=== PATIENT | male | born 2000 | race Caucasian/White ===

== ENCOUNTER 2023-12-31 10:48 | Outpatient (AMB) | payer BC, SELFPAY ==
--- NOTE | 2023-12-31 11:00 | A.OFFPC_ITS ---
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 Pt [facility] the [facility] from [place] after three years without seeing or having an PCP. 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 Patient has a past medical history significant for anxiety, insomnia, Neurofibromatosis, severe learning disability. 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 Does use [place] maneuvers though have not been effective. Usually has to go to professional vestibular therapy. .. Anxiety: Was on fluoxitine 20mg which was very helpful for his anxiety. He would like to restart fluoxetine which has been helpful for his anxiety in the past. VAccine: Needs Tdap though declines at this time, [facility] Medical History FHx: chronic kidney disease Insomnia Neurofibromatosis Surgical History S/P laparoscopic appendectomy Family History (Updated 12/31/23 @ 11:30 by Shaji Altamirano PA-C) Mother Anxiety IgA nephropathy Melanoma Father Heart disease Elevated cholesterol Social History (Updated 12/31/23 @ 11:32 by Shaji Altamirano PA-C) Household Members: Family Housing: House Alcohol intake: current Alcohol intake frequency: a few times a month Alcohol type: beer Patient Tobacco Use Status: Never used Tobacco e-Cigarette/Vaping Use: Former Use Substance Use Type: Marijuana service: No Current occupational status: employed Current occupation: [employer] Cognitive needs: No Hearing needs: No Vision needs: No Questionnaire PHQ-9 Over the last 2 weeks, how often have you been bothered by any of the following problems? 1. Little interest or pleasure in doing things: not at all 2. Feeling down, depressed, or hopeless: not at all 3. Trouble falling or staying asleep, or sleeping too much: not at all 4. Feeling tired or having little energy: not at all 5. Poor appetite or overeating: not at all 6. Feeling bad about yourself - or that you are a failure or have let yourself or your family down: not at all 7. Trouble concentrating on things, such as reading the newspaper or watching television: not at all 8. Moving or speaking so slowly that other people could have noticed. Or the opposite - being so fidgety or restless that you have been moving around a lot more than usual: not at all 9. Thoughts that you would be better off or of hurting yourself in some way: not at all Total score: 0 Depression Screening Interpretation: Negative Depression Screening Done: Yes 32945 - PHQ-9 Billing: Yes Source: Developed by Drs. Logan Greenberg, Kae San, Simone Chappell and colleagues, with an educational reuben from [employer]. Thrive Questionnaire Date Thrive assessed: 12/31/23 I am a: Patient What is your living situation today?: I have a steady place to live Within the past 12 months, did the food you bought not last and you didn't have the money to get more?: Never true Within the past 12 months, did you worry whether your food would run out before you got money to buy more?: Never true Do you have trouble paying for medicines?: No Do you have trouble getting transportation to medical appointments?: No Do you have trouble paying your heating and electricity bill?: No Do you have trouble taking care of your child, family member or friend?: No Do you have trouble with day-to-day activities such as bathing, preparing meals, shopping, managing finances, etc.?: No Are you currently unemployed and looking for a job?: No Are you interested in more education?: No Please select the resources that you would like help with: None Currently or been in a relationship where the following occur: no concerns reported THRIVE Score: 0 AUDIT C Alcohol Use Questionnaire (AUDIT-C) 1. How often do you have a drink containing alcohol?: 2-3 times a week 2. How many drinks containing alcohol do you have on a typical day when you are drinking?: 1 or 2 3. How often do you have six or more drinks on one occasion?: Monthly Total Score: 5 RAIN-7 AMB Questionnaire RAIN-7 Date RAIN - 7 assessed: 12/31/23 Feeling nervous, anxious, or on edge: 3 = Nearly every day Not being able to stop or control worryin = Nearly every day Worrying too much about different things: 3 = Nearly every day Trouble relaxin = Nearly every day Being so restless that it is hard to sit still: 2 = More than half the days Becoming easily annoyed or irritable: 3 = Nearly every day Feeling afraid as if something awful might happen: 2 = More than half the days Total RAIN-7 score (0-4 normal; 5-9 mild; 10-14 moderate; 15-21 severe): 19 Source: Developed by Drs. Logan Greenberg, Kae San, Simone Chappell and colleagues, with an educational reuben from [employer]. RAIN-7 Assessment Billing RAIN-7 Assessment Tool: RAIN-7 Assessment 15634 Review of Systems Const Denies headache(s) Eyes Denies loss of vision ENT Denies vertigo, Denies dizziness, Denies headache(s) and Denies sore throat Card Denies chest pain, Denies leg edema and Denies lightheadedness Resp Denies cough, Denies hemoptysis and Denies wheezing GI Denies abdominal pain, Denies melena, Denies constipation, Denies diarrhea and Denies vomiting Denies dysuria, Denies urinary frequency and Denies urinary urgency Musc Denies arthralgias, Denies joint swelling, Denies numbness and Denies tingling Neuro Denies Abnormal speech present, Denies behavioral changes, Denies vertigo, Denies dizziness, Denies headache(s), Denies loss of vision, Denies memory loss, Denies numbness and Denies tingling Psych Denies anxiety, Denies behavioral changes, Denies depression, Denies memory loss and Denies panic attacks Gorge/Lymph Denies easy bleeding and Denies easy bruising Aller/Immun Denies wheezing Physical exam (Primary Care) Vital Signs: Last Vital Signs Pulse 94 12/31/23 11:07 BP 110/70 12/31/23 11:07 Pulse Ox 97 12/31/23 11:07 Oxygen Delivery Method Room Air 12/31/23 11:07 BMI result Body Mass Index 18.5 Tobacco/Smoking Status: Tobacco use Status Tobacco use date assessed 12/31/23 12/31/23 11:19 Patient Tobacco Use Status Never used Tobacco 12/31/23 11:32 e-Cigarette/Vaping Use Former Use 12/31/23 11:32 PHQ-9: PHQ-9 Score PHQ-9: Total score 0 12/31/23 11:33 Depression Screening Interpretation: Negative Thrive Assessment: Date of Thrive Assessment Date Thrive assessed 12/31/23 12/31/23 11:19 Currently or been in a relationship where the following occur: no concerns reported Const General: healthy appearing, no acute distress, alert and awake Nutritional Appearance: well nourished Orientation/consciousness: oriented to person, oriented to place and oriented to time HENMT Ears: TM's normal bilaterally General nose exam: Normal nasal mucous membranes and turbinates present Eyes Conjunctivae: conjunctivae normal Sclerae: sclerae normal Pupils: Equal, round and reactive pupils present Neck Neck: Yes no lymphadenopathy and Yes no JVD Thyroid: Thyroid normal Carotids: no bruits Resp Effort & Inspection: normal respiratory effort and not tachypneic Auscultation: no crackles, no rales, no rhonchi and no wheezes Cardio Rate: regular rate Rhythm: regular rhythm Heart sounds: no murmurs and normal S1 and S2 GI Palpation (GI): Soft to palpation, nontender, no hepatomegaly and no splenomegaly Auscultation: normal bowel sounds Skin General skin exam: no rashes or lesions noted and dry skin Neuro General: oriented to person, oriented to place and oriented to time Cranial nerves: Yes Equal, round and reactive pupils present Speech: No Abnormal speech present Gait exam (Neuro): Normal gait present Motor exam (neuro): no tremor noted Extrem Right upper extremity: full ROM Left upper extremity: full ROM Right lower extremity: full ROM; no edema Left lower extremity: full ROM; no edema Psych Mental Status: mental status grossly normal Speech and movement: Normal speech and movement present Affect: normal affect Attitude: cooperative Thought process: Normal thought process present Assessment and Plan Assessment & Plan (1) Anxiety: Comment: recommended counseling - pt declined referral Code(s): F41.9 - Anxiety disorder, unspecified Plan: As per rain 7 score patient does have a history of anxiety. He was on fluoxetine 20 mg in the past with good effect on reducing his anxiety. He has not interested in cognitive behavioral therapy at this time. (2) Neurofibromatosis: Comment: followed by [facility]. Code(s): Q85.00 - Neurofibromatosis, unspecified Plan: Has been stable. Does have intermittent episodes vertigo that are severe and disabling. (3) Screening for diabetes mellitus (DM): Code(s): Z13.1 - Encounter for screening for diabetes mellitus (4) BPPV (benign paroxysmal positional vertigo): Code(s): H81.10 - Benign paroxysmal vertigo, unspecified ear Qualifiers: Laterality: bilateral Qualified Code(s): H81.13 - Benign paroxysmal vertigo, bilateral Plan: As per HPI patient as episodic vertigo attacks to which he needs the help of for fresh no vestibular therapy. Will refer to [facility] in hopes he will be able to contact them on an as needed basis. Will also supply patient with meclizine to use on an as needed basis for dizziness. Orders: Orders Comprehensive [place]. Panel Fast Today Z13.1 - Encounter for screening for diabetes mellitus Complete Blood Count no Diff Today Q85.00 - Neurofibromatosis, unspecified PT Evaluation and Treatment Today H81.13 - Benign paroxysmal vertigo, bilateral Medications: New fluoxetine 20 mg PO DAILY 30 caps 3RF 30 days F41.9 - Anxiety disorder, unspecified meclizine 25 mg PO DAILY PRN 10 tabs 0RF motion sickness 10 days H81.13 - Benign paroxysmal vertigo, bilateral Coding Level of Care Code New Pt Level 4 (27957) Diagnoses Anxiety F41.9 Neurofibromatosis Q85.00 Screening for diabetes mellitus (DM) Z13.1 Benign paroxysmal positional vertigo due to bilateral vestibular disorder H81.13 Laterality: bilateral Additional Codes RAIN-7 Assessment Billing - RAIN-7 Assessment Tool: RAIN-7 Assessment 52066 ([id number])
[2023-12-31 11:07] VITALS: BP 110/70; PULSE 94; O2SAT 97; BMI 18.5
== END 2023-12-31 11:46 | disposition home or self-care (01) ==
PROVIDERS: PCP Physician Assistant; Visit Provider Physician Assistant
DX: Q85.00 Neurofibromatosis, unspecified (principal); F41.9 Anxiety disorder, unspecified; Z13.1 Encounter for screening for diabetes mellitus; H81.13 Benign paroxysmal vertigo, bilateral
CPT/HCPCS: 99204

== ENCOUNTER 2024-06-03 10:56 | Outpatient (AMB) | payer BC, SELFPAY ==
[2024-06-03 11:12] VITALS: BP 110/68; BMI 20.2
--- NOTE | 2024-06-03 11:12 | A.OFFPC_ITS ---
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 He reports 4 days ago playing basketball and falling on his left side injuring his ribs. He denies any issues with breathing though does have pretty significant pain over his left chest when he sneezes or coughs. He otherwise denies any difficulty with breathing. He has been using ice packs and Motrin without much relief. [facility] Medical History FHx: chronic kidney disease Insomnia Neurofibromatosis Surgical History S/P laparoscopic appendectomy Family History Mother Anxiety IgA nephropathy Melanoma Father Heart disease Elevated cholesterol Social History Household Members: Family Housing: House Alcohol intake: current Alcohol intake frequency: a few times a month Alcohol type: beer Patient Tobacco Use Status: Never used Tobacco e-Cigarette/Vaping Use: Former Use Substance Use Type: Marijuana service: No Current occupational status: employed Current occupation: [employer] Cognitive needs: No Hearing needs: No Vision needs: No Questionnaire Thrive Questionnaire Date Thrive assessed: 12/31/23 RAIN-7 AMB Questionnaire RAIN-7 Date RAIN - 7 assessed: 12/31/23 Source: Developed by Drs. Logan Greenberg, Kae San, Simone Chappell and colleagues, with an educational reuben from [employer]. Review of Systems Const Denies headache(s) Eyes Denies loss of vision ENT Denies vertigo, Denies dizziness, Denies headache(s) and Denies sore throat Card Denies chest pain, Denies leg edema and Denies lightheadedness Resp Denies cough, Denies hemoptysis and Denies wheezing GI Denies abdominal pain, Denies melena, Denies constipation, Denies diarrhea and Denies vomiting Denies dysuria, Denies urinary frequency and Denies urinary urgency Musc Denies arthralgias, Denies joint swelling, Denies numbness and Denies tingling Neuro Denies Abnormal speech present, Denies behavioral changes, Denies vertigo, Denies dizziness, Denies headache(s), Denies loss of vision, Denies memory loss, Denies numbness and Denies tingling Psych Denies anxiety, Denies behavioral changes, Denies depression, Denies memory loss and Denies panic attacks Gorge/Lymph Denies easy bleeding and Denies easy bruising Aller/Immun Denies wheezing Physical exam (Primary Care) Vital Signs: Last Vital Signs BP 110/68 06/03/24 11:12 BMI result Body Mass Index 20.2 Tobacco/Smoking Status: Tobacco use Status Tobacco use date assessed 12/31/23 06/03/24 11:15 Patient Tobacco Use Status Never used Tobacco 06/03/24 11:15 e-Cigarette/Vaping Use Former Use 06/03/24 11:15 Thrive Assessment: Date of Thrive Assessment Date Thrive assessed 12/31/23 06/03/24 11:15 Const General: healthy appearing, no acute distress, alert and awake Nutritional Appearance: well nourished Orientation/consciousness: oriented to person, oriented to place and oriented to time [facility] Ears: TM's normal bilaterally General nose exam: Normal nasal mucous membranes and turbinates present Eyes Conjunctivae: conjunctivae normal Sclerae: sclerae normal Pupils: Equal, round and reactive pupils present Neck Neck: Yes no lymphadenopathy and Yes no JVD Thyroid: Thyroid normal Carotids: no bruits Chest Chest/axillae images: 2 1. TENDERNESS TO PALPATION IN THE AREA OUTLINED. Resp Effort & Inspection: normal respiratory effort and not tachypneic Auscultation: no crackles, no rales, no rhonchi and no wheezes Cardio Rate: regular rate Rhythm: regular rhythm Heart sounds: no murmurs and normal S1 and S2 GI Palpation (GI): Soft to palpation, nontender, no hepatomegaly and no splenomegaly Auscultation: normal bowel sounds Skin General skin exam: no rashes or lesions noted and dry skin Neuro General: oriented to person, oriented to place and oriented to time Cranial nerves: Yes Equal, round and reactive pupils present Speech: No Abnormal speech present Gait exam (Neuro): Normal gait present Motor exam (neuro): no tremor noted Extrem Right upper extremity: full ROM Left upper extremity: full ROM Right lower extremity: full ROM; no edema Left lower extremity: full ROM; no edema Psych Mental Status: mental status grossly normal Speech and movement: Normal speech and movement present Affect: normal affect Attitude: cooperative Thought process: Normal thought process present Office Procedures Flu Questionnaire Does the patient have a severe egg allergy?: No Immunizations Fluarix Triv [id number] (PF) 45 mcg (15 mcg x 3)/0.5 mL IM syringe Performing Provider: Shaji Altamirano PA-C [facility] Documented (not given) by: PATRIZIA Khanna on 06/03/24 11:23 Reason Not Given: Patient Refused Coding Level of Care Code Est Pt Level 3 (49427) Diagnoses Rib pain on left side R07.81 Assessment & Plan Assessment & Plan (1) Rib pain on left side: Code(s): R07.81 - Pleurodynia Category: Medical Plan: Patient's seems to have a left-sided rib contusion. Will send for x-rays to rule out a fracture. Will supply patient with muscle relaxer and tramadol for his pain relief temporarily. Fortunately has no respiratory compromise. Advised on topical lidocaine NSAID and Tylenol as part of pain regime as well. Orders: Orders 2 XR ribs LT min 3V w CXR1V Today R07.81 - Pleurodynia Influenza [id number] Immunization Today Z23 - Encounter for immunization Medications: New 2 tramadol 50 mg PO DAILY 7 days 7 tabs 0RF R07.81 - Pleurodynia tizanidine 2 mg PO BEDTIME 15 days 15 tabs 0RF muscle spasticity R07.81 - Pleurodynia
== END 2024-06-03 12:08 | disposition home or self-care (01) ==
LOC: HO.HMCH 10:56
PROVIDERS: PCP Physician Assistant; Visit Provider Physician Assistant
DX: R07.81 Pleurodynia (principal); Z23 Encounter for immunization

== ENCOUNTER → 2024-06-03 10:56 | Outpatient (BNVA) | payer BC, SELFPAY | PROVIDERS: PCP Physician Assistant; Visit Provider Physician Assistant | DX: R07.81 Pleurodynia (principal); Z28.21 Immunization not carried out because of patient refusal | CPT/HCPCS: 90471 ==

== ENCOUNTER 2025-07-28 10:13 | Outpatient (AMB) | payer BC, SELFPAY ==
--- NOTE | 2025-07-28 10:19 | AM.OFFWIN_ITS ---
Intake Vital Signs 07/28/25 10:24 Height 5 ft 10 in Weight 124 lb BMI 17.8 BP 120/68 Blood Pressure Location Lt brachial Position Sitting Pulse 125 H Pulse Source Pulse Oximeter Temp 98.4 F Temp Source Oral Pulse Oximetry (%) 98 Oxygen Delivery Method Room Air Intake Visit Reasons: EP-sore throat [phone] Intake Note: Patient presents c/o sore throat, nasal congestion x3 days. Patient Tobacco Use Status: Never used Tobacco Allergies methylphenidate (Concerta) Allergy (Unknown, Verified 07/28/25 10:23) unknown HPI EP-sore throat [phone] HPI Details This is a 25 year old male patient who presents to the [place] clinic with report of 3 day history of sore throat and body aches. Denies any fevers, chills, respiratory or GI symptoms. Denies any known exposure to sick contacts. [facility] Medical History FHx: chronic kidney disease Insomnia Neurofibromatosis Surgical History S/P laparoscopic appendectomy Family History Mother Anxiety IgA nephropathy Melanoma Father Heart disease Elevated cholesterol Social History Household Members: Family Housing: House Alcohol intake: current Alcohol intake frequency: a few times a month Alcohol type: beer Patient Tobacco Use Status: Never used Tobacco e-Cigarette/Vaping Use: Former Use Substance Use Type: Marijuana service: No Current occupational status: employed Current occupation: [employer] Cognitive needs: No Hearing needs: No Vision needs: No Review of Systems Const All systems reviewed & are unremarkable except as noted in HPI and below Physical Exam Const General: cooperative, healthy appearing and no acute distress HEENT Head: Yes normal to inspection Ears: hearing grossly normal bilaterally General nose exam: Normal external nose present and Normal nares present Face and sinus: Yes normal facial exam and Yes sinuses nontender Mouth: Normal oral and palatal mucosa present Throat: Yes uvula midline and Yes posterior oropharynx abnormal (erythematous, tonsilar hypertrophy and exudate) Neck Neck: Yes no lymphadenopathy Resp Effort & Inspection: normal respiratory effort Auscultation: clear to auscultation bilaterally Cardio Rate: regular rate Rhythm: regular rhythm Skin General skin exam: no rashes or lesions noted Extrem General: Yes capillary refill normal and Yes no clubbing, cyanosis or edema Psych Appearance: grossly normal Mental Status: mental status grossly normal Speech and movement: Normal speech and movement present Results AMB Rapid Strep AMB Rapid Strep Positive Last Edit by Morenita Fenton CMA on 07/28/25 10: 55 Assessment & Plan Assessment & Plan (1) Strep pharyngitis: Code(s): J02.0 - Streptococcal pharyngitis Plan: Rapid strep positive. Will start patient on penicillin. We reviewed indications come use, possible side effects of medication. I also advised him to utilize saltwater gargles and [id number]-[id number] lozenges as needed. May also take Ty lenol/Motrin p.r.n. any discomfort. All questions were answered, and patient verbalizes understanding and agrees to plan. He can return to the clinic as needed if he does not improve with treatment. Orders: Orders AMB Rapid Strep Screen Today Z13.9 - Encounter for screening, unspecified Medications: New penicillin V potassium 500 mg PO TID 30 tabs 0RF 10 days J02.0 - Streptococcal pharyngitis Coding Level of Care Code Est Pt Level 4 (58986) Diagnoses Strep pharyngitis J02.0
[2025-07-28 10:24] VITALS: BP 120/68; PULSE 125; TEMP 36.9; O2SAT 98; BMI 17.8
--- OUTSIDE RECORDS SUMMARY | 2025-07-28 11:17 | XMS_ITS | Clinical Summary ---
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 Not on sarahi e 12/01/2022 Are you concerned about learning? Not on file 12/01/2022 No 12/01/2022 No 12/01/2022 Digital Access Answer Date Recorded No 12/23/2022 No 12/23/2022 No 12/23/2022 Reliable internet access at home? Not on file 12/23/2022 Device with a working camera? Not on file Sex and Gender Information Value Date Recorded Sex Assigned at Not on file Legal Sex Male 5:32 PM EST Gender Identity Not on file Sexual Orientation Not on file Last Filed Vital Signs Vital Sign Reading Time Taken Comments Blood Pressure 121/65 01/06/2018 1:45 PM EDT Pulse 75 01/06/2018 1:45 PM EDT Temperature 36.9 C (98.5 F) 01/06/2018 1:45 PM EDT Respiratory Rate 16 01/06/2018 1:45 PM EDT Oxygen Saturation 98% 01/06/2018 1:45 PM EDT Inhaled Oxygen Concentration - - Weight 51.5 kg (113 lb 8 oz) 01/06/2018 1:44 PM EDT Height 167.6 cm (5' 6 ) 01/06/2018 1:44 PM EDT Body Mass Index 18.32 01/06/2018 1:44 PM EDT Plan of Treatment Health Maintenance Due Date Last Done Comments Adult Td,Tdap Booster 2002 DEPRESSION SCREENING 2014 SMOKING Hx and SMOKELESS TOBACCO SCREENING 2015 MENINGOCOCCAL VACCINES (B) ( 1 of 2 - Standard) 2018 HEPATITIS A VACCINES (2 of 2 - 2-dose series) 08/07/2018 02/04/2018 HEPATITIS C SCREENING 02/24/2020 HIV ONE-TIME SCREENING (18-6 5 YEARS) 02/24/2020 HPV VACCINES (3 - Male 3-dos e series) 11/08/2020 08/16/2020, 02/04/2018 INFLUENZA VACCINE (#1) 2025 COVID-19 VACCINE (1 - 2024-2 6 season) 2025 MENINGOCOCCAL VACCINES (ACWY) Completed 08/16/2020 HIB VACCINES Aged Out No longer eligi ble based on patient's age to complete this topic PNEUMOCOCCAL VACCINES (0-49 years) Aged Out No longer eligible b ased on patient's age to complete this topic Medical Devices Not on file Insurance [facility] Load [employer] PPO [employer] PASSPORT PPO [employer] PPO [employer] PASSPORT PPO [employer] PASSPORT PPO [facility] [employer] PAS[employer]ORT PPO [employer]ORT PPO [employer]ORT PPO [employer] PPO Care Teams Micromatic Hone Operator Relationship Specialty Start Date End Date Pcp, Not Required PCP - General 01/09/19 Additional Source Comments The information contained in this document represents components of the legal health record. It is not the complete legal health record.[facility]
== END 2025-07-28 10:53 | disposition home or self-care (01) ==
PROVIDERS: PCP Physician Assistant; Visit Provider Nurse Practitioner Family
DX: J02.0 Streptococcal pharyngitis (principal); Z13.9 Encounter for screening, unspecified

== ENCOUNTER → 2025-07-28 10:13 | Outpatient (BNVA) | payer BC, SELFPAY | PROVIDERS: PCP Physician Assistant; Visit Provider Nurse Practitioner Family | DX: J02.0 Streptococcal pharyngitis (principal) | CPT/HCPCS: 87880 ==